=== PATIENT | male | born 1980 | race Caucasian/White ===

== ENCOUNTER 2016-12-05 11:05 | Emergency (ER) | payer SELFPAY ==
--- NOTE | 2016-12-05 12:25 | XRAY Preliminary Report ---
Exam: XR Chest 2 View PA/LAT IMPRESSION: No acute abnormality of the chest. [facility] SITE ID: [id number]
--- NOTE | 2016-12-05 12:27 | XRAY Report ---
EXAM: CHEST RADIOGRAPHY EXAM DATE: 12/05/2016 12:18 PM. CLINICAL HISTORY: Chest pain. Current cigarette marijuana smoker for 20 years. COMPARISON: None. TECHNIQUE: 2 views. FINDINGS: Lungs/Pleura: No focal opacities evident. No pleural effusion. No pneumothorax. The lungs are well ex panded. Mediastinum: Heart and mediastinal contours are unremarkable. Other: Mild degenerative disease of the spine. IMPRESSION: No acute abnormality of the chest. [facility] Referring Provider Line: [phone] SITE ID: [id number]
[2016-12-05 12:41] LABS: BASOPHILS # (AUTO) 0.1 10^3/uL (0.0-0.1); BASOPHILS % (AUTO) 0.5 %; EOSINOPHILS # (AUTO) 0.1 10^3/uL (0.0-0.7); HCT - HEMATOCRIT 46.4 % (42.0-52.0); HGB - HEMOGLOBIN 15.6 g/dL (14.0-18.0); LYMPHOCYTES # (AUTO) 1.5 10^3/uL (1.5-3.5); LYMPHOCYTES % (AUTO) 12.9 %; MEAN CORPUSCULAR HEMOGLOBIN 29.1 pg (27.0-31.0); MEAN CORPUSCULAR HGB CONC 33.6 g/dL (32.0-36.0); MEAN CORPUSCULAR VOLUME 86.9 fL (80.0-94.0); MEAN PLATELET VOLUME 8.2 fL (7.4-11.4); MONOCYTES # (AUTO) 0.8 10^3/uL (0.0-1.0); NEUTROPHILS # (AUTO) 9.3 10^3/uL (1.5-6.6); NEUTROPHILS % (AUTO) 78.6 %; RED BLOOD COUNT 5.34 10^6/uL (4.70-6.10); RED CELL DISTRIBUTION WIDTH 13.5 % (12.0-15.0); UNCORRECTED WHITE BLOOD COUNT 11.8 x10^3/uL; WHITE BLOOD COUNT 11.8 x10^3/uL (4.8-10.8)
[2016-12-05 12:52] LABS: ALBUMIN/GLOBULIN RATIO 1.3 (1.0-2.2); BILIRUBIN,TOTAL 0.5 mg/dL (0.2-1.0); CALCIUM 9.1 mg/dL (8.5-10.3); CREATININE 0.8 mg/dL (0.6-1.2); TOTAL PROTEIN 7.5 g/dL (6.7-8.2)
[2016-12-05 13:46] VITALS: BP 147/94
--- NOTE | 2016-12-05 13:49 | ED Physician Documentation ---
History of Present Illness - Stated complaint Stated Complaint: CP/L ARM TINGLING - Chief complaint Chief Complaint: Cardiac - Additonal information Additional information: hx from pot awoke with diaphoresis at 3 AM then had a brief period of sharp left sided chest pain rad to the back now is feeling better no soa or [place] no leg pain or swelling no recent travel + smoker no HTN DM lipids non fhx CAD Review of Systems Constitutional: reports: Sweats. denies: Fever, Chills Cardiac: denies: Chest pain / pressure Respiratory: denies: Dyspnea, Cough GI: denies: Abdominal Pain, Nausea, Vomiting Musculoskeletal: denies: Extremity swelling Endocrine: denies: Easy bruising / bleeding PD PAST MEDICAL HISTORY - Past Medical History Past Medical History: No - Present Medications Home Medications: Ambulatory Orders Medication Instructions Recorded Confirmed No Known Home Medications [No 12/05/16 12/05/16 Known Home Medications] - Allergies Allergies/Adverse Reactions: Allergies Allergy/AdvReac Type Severity Reaction Status Date / Time aspirin Allergy Unknown Verified 12/05/16 11:16 ibuprofen [From Motrin] Allergy Rash Verified 12/05/16 11:16 Penicillins Allergy Unknown Verified 12/05/16 11:16 - Social History Does the pt smoke?: Yes Smoking Status: Current every day smoker Does the pt drink ETOH?: Yes ETOH Use: Beer Substance Use and Type: Marijuana PD ED PE NORMAL - Vitals Vital signs reviewed: Yes - General General: Alert and oriented X 3 - HEENT HEENT: PERRL - Neck Neck: Supple, no meningeal sign - Cardiac Cardiac: RRR - Respiratory Respiratory: No respiratory distress, Clear bilaterally - Abdomen Abdomen: Soft, Non tender - Extremities Extremities: No deformity, No edema, No calf tenderness / cord - Neuro Neuro: Alert and oriented X 3, No motor deficit Results - Vitals Vitals: Vital Signs - 24 hr 12/05/16 12/05/16 12/05/16 11:16 13:36 13:45 Heart Rate 98 75 Respiratory 20 16 Rate Blood Pressure 190/109 H 154/102 H 147/94 H O2 Saturation 97 97 Oxygen O2 Source Room air - EKG (time done) 1125 Rate: Rate (enter#) Rhythm: NSR [place]: Normal Intervals: Normal HI QRS: LVH Ischemia: Normal ST segments - Labs Labs: Laboratory Tests 12/05/16 12/05/16 12/05/16 12:31 12:31 12:31 WBC 11.8 H RBC 5.34 Hgb 15.6 Hct 46.4 MCV 86.9 MCH 29.1 MCHC 33.6 RDW 13.5 Plt Count 241 MPV 8.2 Neut # 9.3 H Lymph # 1.5 Scott # 0.8 Eos # 0.1 Baso # 0.1 Absolute Nucleated RBC 0.00 Nucleated RBCs 0.0 Sodium 137 Potassium 4.0 Chloride 102 Carbon Dioxide 27 Anion Gap 8.0 BUN 6 Creatinine 0.8 Estimated GFR (MDRD) 109 Glucose 101 H Calcium 9.1 Total Bilirubin 0.5 AST 30 ALT 29 Alkaline Phosphatase 60 Troponin I < 0.04 Total Protein 7.5 Albumin 4.3 Globulin 3.2 Albumin/Globulin Ratio 1.3 Lipase 27 - Rads (name of study) CXR Radiology: See rad report (no acute process) PD MEDICAL DECISION MAKING - ED course ED course: EKG s ischemia, trop neg >9 hr after onset sx, CXR shows tight mediastinum and no cap or effusion, pt is a smoker so cannot PERC but is not SOA nor tachycardic tachypenic or with swollen legs so doubt PE feels fine now will dc Departure - Departure Disposition: 01 Home, Self Care Clinical Impression: Chest pain Condition: Good Instructions: ED Chest Pain Atypical Unkn Cause Comments: The EKG and blood work do not indicate a heart attack The chest xray does not suggest an aneurysm or tear of your aorta And your exam does not suggest a blood clot in your lung I am not certain what did cause your symptoms, but having ruled out the most life threatening causes of chest pain, I think it is safe for you to go home Please follow up with your PMD for a recheck (and to recheck your blood pressure ) And please please stop smoking Forms: Activity restrictions
== END 2016-12-05 13:58 | disposition home or self-care (01) ==
LOC: ED 11:05
DX: R07.9 Chest pain, unspecified (principal); F17.200 Nicotine dependence, unspecified, uncomplicated
CPT/HCPCS: 36415; 71020; 80053; 83690; 84484; 85025; 93005; 99283; 99284